=== PATIENT | female | born 1975 | race Caucasian/White ===

== ENCOUNTER 2022-05-01 09:00 | Outpatient (CLI) | payer MEDICARE, OTHER, SELFPAY ==
--- NOTE | 2022-05-01 09:15 | MR_ITS ---
[address] [address] Phone:?[phone] Fax:?[phone] Referring Physician Information: Job Saleh M.D. [address] [facility] [address] Phone:?[phone] Fax:?[phone] Patient:Rob Jackson D.O.B:?1975 Sex:?Female Phone:?[phone] [facility] MRN:?[id number] Exam Date:?05/01/2022 ? EXAM: MRI of the RIGHT WRIST, without contrast CLINICAL HISTORY: Ongoing right wrist pain for multiple months without reported traumatic injury or previous surgery. COMPARISONS: None available. TECHNICAL: MR sequences of the right wrist were obtained: coronals: T1, PD FS, T2 3-D sagittals: PD FS axials: PD, PD FS Sedation: None Contrast: None FINDINGS: Joints and osseous structures: No fracture or suspicious bone marrow signal abnormality is seen. There is a moderate distal radioulnar joint effusion. TFCC: No discrete tear of the triangular fibrocartilage disc is seen although it must be noted that evaluation is suboptimal because of nonarthrogram technique. The proximal and distal laminae of the ulnar attachment are intact. The volar and dorsal radioulnar ligaments are intact. Ligaments: Scapholunate: The scapholunate interval measures close to 3 mm. The scapholunate angle measures approximately 77 degrees. Measures approximately 20 degrees. No discrete tear of the scapholunate ligament is seen although evaluation is suboptimal because of nonarthrogram technique. Lunotriquetral: No evidence of tear on this nonarthrogram study. No offset of the lunotriquetral interval. Tendons: Flexors: Intact without tendinopathy or tenosynovitis. Extensors: ECU & 6th extensor compartment: Intact without wild tendinopathy tear or longitudinal splitting. Extensor retinaculum and fibrous subsheath appear intact without demonstrable subsheath injury or nonphysiologic ECU displacement. 1st - 5th extensor compartments: Intact and unremarkable. Neurovascular: Median: Unremarkable carpal tunnel without convincing neuritis or intrinsic/extrinsic masses. Ulnar: Unremarkable Guyon's canal without intrinsic/extrinsic masses. Ganglia: No ganglion is identified. IMPRESSION: 1. Upper limits of normal/borderline increased scapholunate interval and scapholunate angle. While previous sprain/stretching type injury of the scapholunate ligament is not excluded, there is no evidence of discrete scapholunate ligament tear on this nonarthrogram study. Findings are of uncertain clinical significance. 2. Moderate distal radioulnar joint effusion. 3. No evidence of the triangular fibrocartilage tear although evaluation is suboptimal because of nonarthrogram technique. No tendinous pathology, fracture, or subluxation/dislocation of the right wrist. RCB Electronically signed on 05/01/2022 12:03:00 PM by Neto Bartlett M.D.
== END 2022-05-01 09:01 | disposition home or self-care (01) ==
LOC: MRI 09:02
PROVIDERS: PCP Family Medicine; Visit Provider Orthopaedic Surgery Sports Medicine
DX: M25.531 Pain in right wrist (principal); M25.431 Effusion, right wrist
CPT/HCPCS: 73221

== ENCOUNTER 2022-07-22 10:00 | Outpatient (CLI) | payer MEDICARE, OTHER, SELFPAY ==
--- NOTE | 2022-07-22 10:15 | CRLHL7_ITS ---
For Patients: As a result of the Century Cures Act, medical imaging exams and procedure reports are released immediately into your electronic medical record. You may view this report before your referring provider. If you have questions, please contact your health care provider. BILATERAL SCREENING MAMMOGRAM WITH COMPUTER-AIDED DETECTION TECHNIQUE: CC and MLO views were obtained. These mammographic images have been obtained using full-field digital technique. These mammographic images were interpreted with the benefit of computer-aided detection. COMPARISON FILM: 06/04/21, 05/10/20, 04/12/19. FINDINGS: There are scattered areas of fibroglandular density IMPRESSION: There is no radiographic evidence for malignancy. ASSESSMENT: BI-RADS Category 1: Negative RECOMMENDATION: Routine screening mammogram in 1 year. A lay language report of this examination will be provided to the patient. Abdiel Solares M.D. Diagnostic Radiologist [email or web address] ASA/Dictated by: Abdiel Solares MD @ 07/22/2022 11:36:00 AM (Electronically Signed)
== END 2022-07-22 10:01 | disposition home or self-care (01) ==
LOC: MAMMO 10:01
PROVIDERS: PCP Family Medicine; Visit Provider Family Medicine
DX: Z12.31 Encounter for screening mammogram for malignant neoplasm of breast (principal)
CPT/HCPCS: 77063; 77067

== ENCOUNTER 2022-08-08 09:27 | Outpatient (CLI) | payer MEDICARE, OTHER, SELFPAY ==
[2022-08-08 13:28] LABS: Albumin* 4.3 g/dL (3.3-5.0); Chloride* 104 mmol/L (96-114); Potassium* 4.6 mmol/L (3.6-5.1); Sodium* 139 mmol/L (135-149)
[2022-08-08 13:30] LABS: Alkaline Phosphatase* 75 U/L (40-150); Aspartate Amino Transferase* 21 U/L (12-35); Bilirubin Total* 0.5 mg/dL (0.1-1.5); Blood Urea Nitrogen* 10 mg/dL (5-24); Carbon Dioxide* 28 mmol/L (20-32); Creatinine* 0.8 mg/dL (0.5-1.5); Estimated Glomerular Filt Rate 91 ml/min; Total Protein* 6.8 g/dL (6.0-8.3)
[2022-08-08 13:31] LABS: Alanine Aminotransferase* 13 U/L (4-35); Calcium* 9.1 mg/dL (8.4-10.6); Glucose* 85 mg/dL (60-115)
== END 2022-08-08 09:28 | disposition home or self-care (01) ==
LOC: LKVREF 09:27
PROVIDERS: PCP Family Medicine; Visit Provider Family Medicine
DX: Z01.818 Encounter for other preprocedural examination (principal); Z79.899 Other long term (current) drug therapy
CPT/HCPCS: 80053

== ENCOUNTER 2022-08-20 10:43 | Outpatient (CLI) | payer MEDICARE, OTHER, SELFPAY ==
--- NOTE | 2022-08-20 12:50 | W.ANESCHARGE ---
Anesthesia Charges Start Date/Time Anesthesia Start Date: 08/20/22 Anesthesia Start Time: 12:15 Stop Date/Time Anesthesia Stop Date: 08/20/22 Anesthesia Stop Time: 12:50 Summary Emergency: No
--- NOTE | 2022-08-20 12:54 | W.ANESCHARGE ---
Anesthesia Charges Start Date/Time Anesthesia Start Date: 08/20/22 Anesthesia Start Time: 12:15 Stop Date/Time Anesthesia Stop Date: 08/20/22 Anesthesia Stop Time: 12:50 Summary Emergency: No
== END 2022-08-20 10:44 | disposition home or self-care (01) ==
LOC: OP CLINIC 10:44
PROVIDERS: PCP Family Medicine; Visit Provider Surgery
DX: Z12.11 Encounter for screening for malignant neoplasm of colon (principal)
CPT/HCPCS: 00812; 45378

== ENCOUNTER 2022-11-14 13:10 | Outpatient (CLI) | payer MEDICARE, OTHER, SELFPAY | END 2022-11-14 13:11 | disposition home or self-care (01) | LOC: LKVREF 11-20 09:11 | PROVIDERS: PCP Family Medicine; Visit Provider Family Medicine | DX: R35.0 Frequency of micturition (principal); N39.0 Urinary tract infection, site not specified | CPT/HCPCS: 87086 ==

== ENCOUNTER 2023-01-14 08:12 | Outpatient (CLI) | payer MEDICARE, OTHER, SELFPAY | END 2023-01-14 08:13 | disposition home or self-care (01) | PROVIDERS: PCP Family Medicine; Visit Provider Family Medicine | DX: Z00.00 Encounter for general adult medical examination without abnormal findings (principal); N39.0 Urinary tract infection, site not specified; B35.1 Tinea unguium; Z13.6 Encounter for screening for cardiovascular disorders | CPT/HCPCS: 80053; 80061; 82306; 84443; 87086 ==

== ENCOUNTER 2023-07-25 07:48 | Outpatient (CLI) | payer MEDICARE, OTHER, SELFPAY | END 2023-07-25 07:49 | disposition home or self-care (01) | LOC: NFLDREF 07-26 03:08 | PROVIDERS: PCP Family Medicine; Referring Provider Family Medicine; Visit Provider Family Medicine | DX: R32 Unspecified urinary incontinence (principal); R00.0 Tachycardia, unspecified; F41.9 Anxiety disorder, unspecified; F20.9 Schizophrenia, unspecified | CPT/HCPCS: 87086 ==

== ENCOUNTER 2024-01-16 08:51 | Outpatient (CLI) | payer OTHER, SELFPAY ==
--- NOTE | 2024-01-16 09:15 | MM_ITS ---
Patient: PETRONA GARCIA Facility:?[facility] Patient ID:?[id number] Site Patient ID:?[id number]. Site :?1975 Study:?XRay-Breast Bilateral 3D W/CAD-01/16/2024 9:58:27 AM Ordering Physician:Yoselin Final Report: BILATERAL SCREENING MAMMOGRAM WITH COMPUTER-AIDED DETECTION AND TOMOSYNTHESIS TECHNIQUE: CC and MLO views were obtained. These mammographic images have been obtained using full-field digital technique. These mammographic images were interpreted with the benefit of computer-aided detection. Breast Tomosynthesis was used in this interpretation. COMPARISON FILM: 07/22/22, 06/04/21, 05/10/20. FINDINGS: There are scattered areas of fibroglandular density. IMPRESSION: There is no radiographic evidence for malignancy. ASSESSMENT: BI-RADS Category 1: Negative RECOMMENDATION: Routine screening mammogram in 1 year. A lay language report of this examination will be provided to the patient. Abdiel Solares M.D. Diagnostic Radiologist [email or web address] DSM/sp R& Transcribed: 5:22 p.m. SP/Dictated by: Abdiel Solares MD @ 01/16/2024 11:26:00 AM SP/Dictated by: Abdiel Solares MD @ 01/16/2024 11:26:00 AM Signed by:?Abdiel Solares MD @01/16/2024 5:39:57 PM (Electronic Signature)
== END 2024-01-16 08:52 | disposition home or self-care (01) ==
LOC: MAMMO 08:52
PROVIDERS: PCP Family Medicine; Visit Provider Family Medicine
DX: Z12.31 Encounter for screening mammogram for malignant neoplasm of breast (principal)
CPT/HCPCS: 77063; 77067

== ENCOUNTER 2024-04-26 10:03 | Outpatient (CLI) | payer OTHER, SELFPAY ==
--- OUTSIDE RECORDS SUMMARY | 2024-04-26 10:09 | XMS_ITS | Clinical Summary ---
Author Organization [facility] Address [address] [place] [address]. [place] [address] Care Team Providers Care Glove Tagger Name Role Phone Arie Calhoun MD Primary Care Provider Allergies No known active allergies Medications Medication Sig Dispensed Refills Start Date End Date Status traMADol (ULTRAM) 50 MG tablet Take 50 mg by mouth 07/05/2013 Activ e buPROPion (WELLBUTRIN SR) 200 MG 12 hr tablet Take 200 mg by mouth Active cyclobenzaprine (FLEXERIL) 10 MG tablet TAKE ONE TABLET BY MOUTH THREE TIMES A DAY NEEDED 1 08/28/2017 Active BusPIRone HCl 30 MG TABS TAKE ONE-HALF TABLET BY MOUTH THREE TIMES A DAY 2 08/21/2017 Active nabumetone (RELAFEN) 500 MG tablet Take 500 mg by mouth 2 times daily 1 08/25/2017 Active polyethylene glycol (MIRALAX/GLYCOLAX) powder DISSOLVE 17 GRAMS (ABOUT ONE HEAPING TABLESPOONFUL) IN WATER AND DRINK BY MOUTH ONCE DAILY NEEDED 0 07/18/2017 Active tolterodine (DETROL LA) 4 MG 24 hr capsule Take 4 mg by mouth daily 3 07/17/2017 Active traZODone (DESYREL) 50 MG tablet TAKE 1/2-1 TABLET BY MOUTH AT BEDTIME 2 08/22/2017 Active Active Problems No known active problems Social History Tobacco Use Types Packs/Day Years Used Date Smoking Tobacco: Never Smokeless Tobacco: Never Sex and Gender Information Value Date Recorded Sex Assigned at Not on file Gender Identity Not on file Sexual Orientation Not on file Last Filed Vital Signs Vital Sign Reading Time Taken Comments Blood Pressure 108/70 09/11/2017 11:20 AM ALUMINUM FABRICATION SUPERVISOR Pulse - - Temperature - - Respiratory Rate - - Oxygen Saturation - - Inhaled Oxygen Concentration - - Weight 68.9 kg (152 lb) 09/11/2017 11:20 AM ALUMINUM FABRICATION SUPERVISOR Height 157.5 cm (5' 2) 09/11/2017 11:20 AM ALUMINUM FABRICATION SUPERVISOR Body Mass Index 27.8 09/11/2017 11:20 AM ALUMINUM FABRICATION SUPERVISOR Plan of Treatment Not on file Care Teams Glove Tagger Relationship Specialty Start Date End Date Arie Calhoun MD PCP - General Family Practice 09/11/17
--- OUTSIDE RECORDS SUMMARY | 2024-04-26 10:10 | XMS_ITS | Referral Summary ---
Author Organization [facility] Address [address] [place] [address]. [place] [address] Care Team Providers Care Squeezer Operator Name Role Phone Arie Calhoun MD Primary Care Provider [phone] Allergies No known active allergies Medications Medication [...] Comments Blood Pressure 108/70 09/11/2017 11:20 AM ICING MAKER Pulse - - Temperature - - Respiratory Rate - - Oxygen Saturation - - Inhaled Oxygen Concentration - - Weight 68.9 kg (152 lb) 09/11/2017 11:20 AM ICING MAKER Height 157.5 cm (5' 2) 09/11/2017 11:20 AM ICING MAKER Body Mass Index 27.8 09/11/2017 11:20 AM ICING MAKER Plan of Treatment Not on file Care Teams Squeezer Operator Relationship Specialty Start Date End Date Arie Calhoun MD PCP - General Family Practice 09/11/17
--- OUTSIDE RECORDS SUMMARY | 2024-04-26 10:10 | XMS_ITS | Clinical Summary ---
Author Organization [facility] Address [place], [place] [address] Care Team Providers Care Marketing Communications Associate Name Role Phone Arie Calhoun MD Primary Care Provider Allergies No known active allergies Medications Medication Sig Dispensed Refills Start Date End Date Status BUSPAR 30 MG TAB 1 pill twice daily for anxiety Active DETROL LA 4 MG 24 HR CAP take 1 capsule (4 mg) by oral route once daily. for bladder control. Active naproxen (NAPROSYN) 500 mg tablet Take 500 mg by mouth 2 times daily with meals. Active pantoprazole (PROTONIX) 40 mg tabletIndication s:gastroesophage al reflux disease Take 40 mg by mouth 2 times daily. Indications: GASTROESOPHAGEAL REFLUX 04/02/2011 Active albuterol (PROVENTIL; VENTOLIN) 90 mcg/Actuation inhalerIndicatio ns:bronchospasm prevention Inhale 2 Puffs by mouth every 4 hours if needed. Indications: BRONCHOSPASM PREVENTION 04/02/2011 Active traMADol (ULTRAM) 50 mg tablet Take 1 tablet by mouth every 6 hours if needed for Pain. 15 tablet 0 07/05/2013 Active bisacodyl (DULCOLAX) 10 mg suppositoryIndic ations:constipat ion Insert 10 mg rectally once daily if needed. Indications: CONSTIPATION Active buPROPion (WELLBUTRIN SR) 200 mg Sustained-Releas e tabletIndication s:depression Take 200 mg by mouth 2 times daily. Indications: depression Active Calcium-Cholecal ciferol, D3, (CALCIUM 600 + D,3,) 600 mg calcium- 200 unit capIndications:p revention of vitamin D deficiency Take 1 capsule by mouth once daily. Indications: PREVENTION OF VITAMIN D DEFICIENCY Active HYDROcodone-acet aminophen, 5-325 mg, (NORCO) per tablet Take 1-2 tablets by mouth every 4 hours if needed for Pain. Max acetaminophen dose: 4000mg in 24 hrs. 20 tablet 0 02/09/2014 Active ibuprofen (ADVIL; MOTRIN) 600 mg tablet Take 1 tablet by mouth every 6 hours if needed for Pain. Maximum of 3200 mg in 24 hours. 30 tablet 0 02/09/2014 Active escitalopram oxalate (LEXAPRO) 20 mg tablet 02/10/2017 Active triamcinolone 0.5% (ARISTOCORT) 0.5 % creamIndications :Rash,Itching with irritation Apply topically to affected area(s) 3 times daily. 1 Tube 04/23/2018 Active Active Problems Problem Noted Date Diagnosed Date Adnexal mass 02/08/2014 Immunizations Name Administration Dates Next Due Influenza, IIV3 (Age >=3 years) 08/08/2010,07/28 Td (Age >=7 Years) 06/26/2009 Social History Tobacco Use Types Packs/Day Years Used Date Smoking Tobacco: Former Tobacco Cessation:Counseling Given: No Alcohol Use Standard Drinks/Week Comments Not Asked 0 (1 standard drink = 0.6 oz pur e alcohol) Sex and Gender Information Value Date Recorded Sex Assigned at Not on file Gender Identity Not on file Sexual Orientation Not on file Obstetrics History Last Filed Vital Signs Vital Sign Reading Time Taken Comments Blood Pressure 119/83 01/17/2023 10:57 AM CDT Pulse 105 01/17/2023 10:57 AM CDT Temperature 36.8 ??C (98.2 ??F) 01/17/2023 10:44 AM C DT Respiratory Rate 16 01/17/2023 10:44 AM CDT Oxygen Saturation 96% 01/17/2023 10:57 AM CDT Inhaled Oxygen Concentration - - Weight 77.6 kg (171 lb) 01/17/2023 10:44 AM CDT Height 160 cm (5' 3) 01/17/2023 10:44 AM CDT Body Mass Index 30.29 01/17/2023 10:44 AM CDT Plan of Treatment Health Maintenance Due Date Last Done Comments Tdap 1985 Depression screening for age 12+ 1986 HIV for age 15-65 1989 BMI (ht and wt on same day) for age 18+ 1992 Hepatitis C screening for age 18-79 1992 Pap test for age 21-65 1995 Tetanus booster 06/26/2019 06/26/2009 Colonoscopy through age 75 2019 Lipids for age 45-75 2019 Mammogram for age 45-75 2019 COVID-19 vaccine series (2022- season) 2023 09/16/2022, 09/03/2021, 02/02/2021, Additional history exists Influenza for age 9-49 07/04/2024 08/08/2010, 2008 Pneumococcal series for age 6-64 Aged Out No longer eligible based on patient's age to complete this topic Advance Directives * Full Code (Latest Code Status on File) Date Activated Date Inactivated Comments 02/07/2014 5:20 PM 02/09/2014 9:26 PM * Full Code Date Activated Date Inactivated Comments 02/07/2014 8:21 AM 02/07/2014 5:20 PM * Full Code Date Activated Date Inactivated Comments 04/05/2011 10:33 AM 04/05/2011 4:48 PM Care Teams Marketing Communications Associate Relationship Specialty Start Date End Date Arie Calhoun MD [address] [place] [address] PCP - General Family Practice 02/11/11
--- OUTSIDE RECORDS SUMMARY | 2024-04-26 10:10 | XMS_ITS | Referral Summary ---
Author Organization [facility] Address [address] [place] [address] Care Team Providers Care Printing Manager Name Role Phone None Reported, Pcp Primary Care Provider Unavail able Source Comments Patient records contain information from all sites at [facility]. For routine questions regarding patient records, call [phone] during business hours, M-F 8:00 AM - 5:00 PM Central Time. Record requests for emergency care only can be directed to [phone] at any time.[facility] Allergies No known active allergies Medications Medication Sig Dispensed Refills Start Date End Date Status escitalopram (for_LEXAPRO) 20 mg tablet Take 1 tablet by mouth daily. 06/27/2017 Active ARIPiprazole (ABILIFY) 20 mg tablet Take 20 mg by mouth daily. 01/11/2023 Active DULoxetine (CYMBALTA) [address] capsule Take 120 mg by mouth daily. 01/11/2023 Active fesoterodine (TOVIAZ) 4 mg 24 hr tablet 01/24/2023 Active pantoprazole (PROTONIX) 40 mg EC tablet Take 40 mg by mouth daily. 12/20/2022 Active polyethylene glycol (MIRALAX) 17 gram/dose oral powder DISSOLVE 17 GRAMS (ABOUT ONE HEAPING TABLESPOONFUL) IN WATER AND DRINK BY MOUTH ONCE DAILY NEEDED 07/18/2017 Active prazosin (MINIPRESS) 2 mg capsule 01/24/2023 Active Senna Plus 8.6-50 mg per tablet Take 2 tablets by mouth at bedtime. 12/07/2022 Active Active Problems Problem Noted Date Diagnosed Date Major Depressive Disorder Single Episode Unspeci fied 09/06/2009 Overview: Depression Major NOS Immunizations Name Administration Dates Next Due DTaP (Infanrix, Tripedia) 06/26/2009 H1N1 Inj 11/01/2009 Influenza (IM) Preservative Free 07/28/2009,09/03 Influenza TIV (IM) 08/08/2010,07/28/2009 Influenza, Unspecified 07/18/2016,09/12/2011,04/2010 SARS-COV-2 (COVID-19) - PFIZ ER BIVALENT TS(Discontinued)(12 YEARS OR OLDER) 09/16/2022 Td Preservative Free (TENIVA C, DECAVAC) 04/12/2019,10/11/1999 Tdap 06/26/2009 influenza vaccine quad (FLUZONE/FLUARIX) (6 months and older)(PF) 08/24/2021,07/26/2020,08/13/2019,2017,08/22/2017,09/12/2016,11/01/2009 Social History Tobacco Use Types Packs/Day Years Used Date Smoking Tobacco: Never Smokeless Tobacco: Never Tobacco Cessation:Counseling Given: Not Answered Nutrition Answer Date Recorded Nutrition: EVOO Fat Source Unknown 12/23 Nutrition: Servings of Fruits/Vegetables per Day Not on file 12/23/2020 Dental Answer Date Recorded Dental: Regular Dentist Unknown 12/23/19 Sex and Gender Information Value Date Recorded Sex Assigned at Not on file Gender Identity Not on file Sexual Orientation Not on file Last Filed Vital Signs Vital Sign Reading Time Taken Comments Blood Pressure 119/83 01/27/2023 10:05 AM CDT Pulse 118 01/27/2023 10:05 AM CDT Temperature 35.6 ??C (96 ??F) 01/27/2023 10:05 AM CDT Respiratory Rate 16 01/27/2023 10:05 AM CDT Oxygen Saturation 97% 01/27/2023 10:05 AM CDT Inhaled Oxygen Concentration - - Weight 75.9 kg (167 lb 5.3 oz) 01/27/2023 10:05 AM CDT Height 159 cm (5' 2.6) 01/27/2023 10:05 AM CDT Body Mass Index 30.02 01/27/2023 10:05 AM CDT Plan of Treatment Not on file Procedures Procedure Name Priority Date/Time Associated Diagnosis Comments BI BREAST SCREENING BILATERAL Routine 02/09/2016 2:22 PM CDT BASIC METABOLIC PANEL, S/P Routine 01/21/2014 7:18 PM CDT LIPID PANEL, S Routine 03/23/2012 11:24 AM CDT from Last 3 Months or Most Recently Relevant to Health Maintenance Results * BI Breast Screening Bilateral (02/09/2016 2:22 PM CDT) Anatomical Region Laterality Modality Breast Bilateral Mammography 02/09/2016 2:22 PM CDT Addenda Addendum by ProviderThao M.D. on 02/09/2016 2:22 PM CDT RAD^^^OW MA Mammo Screening w ??CADD 02/09/2016 14:22:25 Impressions 02/09/2016 3:38 PM CDT No mammographic findings for malignancy in either breast. Recommendations: ??I recommend a follow-up mammogram in 1 year, self breast exams at least once per month and clinical breast exam at least once per year. ??Of note, benign findings should not deter biopsy in the setting of a palpable abnormality. ??The false negative rate of mammography is approximately 10%. CODE: 1-NEGATIVE Appropriate letter sent. Full field digital mammography is used and Computer Aided Detection is performed on the digital mammogram images. Narrative 02/09/2016 3:38 PM CDT EXAM: [place] Mammo Screening w/ CADD INDICATION: routine COMPARISON: 01/03/2015 FINDINGS: Heterogeneously dense breast parenchyma bilaterally. Breast density diminishes mammographic sensitivity for detection of malignancy. Procedure Note George Hennessy M.D. / ProviderThao M.D. - 03/07/2017 EXAM: MA Mammo Screening w/ CADD INDICATION: routine COMPARISON: 01/03/2015 FINDINGS: Heterogeneously dense breast parenchyma bilaterally. Breast density diminishes mammographic sensitivity for detection of malignancy. IMPRESSION: No mammographic findings for malignancy in either breast. Recommendations: I recommend a follow-up mammogram in 1 year, self breast exams at least once per month and clinical breast exam at least once per year. Of note, benign findings should not deter biopsy in the setting of a palpable abnormality. The false negative rate of mammography is approximately 10%. CODE: 1-NEGATIVE Appropriate letter sent. Full field digital mammography is used and Computer Aided Detection is performed on the digital mammogram images. Ngoc Pinto [facility] BI PROCEDURES * BMP (Basic Metabolic Panel) (01/21/2014 7:18 PM CDT) BUN (Blood Urea Nitrogen), S 11 6 - 21 MGDL POWERCHART Chloride, S 103 98 - 107 MMOLL POWERCHART CO2 Total 26 26 - 102 MMOLL POWERCHART Creatinine 0.7 0.6 - 1.1 MGDL POWERCHART Glucose 100 70 - 139 MGDL POWERCHART Calcium, Total, S 9.3 8.9 - 10.1 MGDL POWERCHART Sodium, S 136 135 - 145 MMOLL POWERCHART Potassium, S 3.9 3.6 - 5.2 MMOLL POWERCHART HXeGFR (MDRD) >60 >=60 [id number] POWERCHART eGFR Black/ >60 >=60 [id number] POWERCHART Blood 01/21/2014 7:18 PM CDT True Ty P.A.-C. LAB BLOOD A DD-ON POWERCHART * (ABNORMAL) Lipid Panel (03/23/2012 11:24 AM CDT) Calculated LDL 100 0 - 100 MGDL POWERCHART Total Cholesterol/HDL Ratio 2.78 2.20 - 4.40 POWERCHART Cholesterol, Total 181 0 - 200 MGDL POWERCHART Comment:Reference value 0-11 months: Not Established Triglycerides 82 41 - 150 MGDL POWERCHART HX HDL 65(H) 40 - 60 MGDL POWERCHART HXLDL/HDL 2 POWERCHART Blood 03/23/2012 11:2 4 AM CDT Arie Calhoun M.D. LAB BLOOD ADD-ON POWERCHART from Last 3 Months or Most Recently Relevant to Health Maintenance Care Teams Printing Manager Relationship Specialty Start Date End Date None Reported, Pcp PCP - General Family Medicine 01/26/23
--- OUTSIDE RECORDS SUMMARY | 2024-04-26 10:10 | XMS_ITS ---
Author Organization [facility] Address [address] [place] [address] Care Team Providers Care Supervisor Dog License Officer Name Role Phone Unavailable Unavailable Unavailable Surgery Details Not on file Complications Check Surgery Details section. Procedure Estimated Blood Loss Check Surgery Details section. Procedure Findings Check Surgery Details section. Procedure Specimens Taken Check Surgery Details section.
--- OUTSIDE RECORDS SUMMARY | 2024-04-26 10:10 | XMS_ITS | Clinical Summary ---
Author Organization [facility] Address [address] [place] [address] Care Team Providers Care Offensive Coordinator Name Role Phone None Reported, Pcp Primary Care Provider Unavail able Source Comments Patient records contain information from all sites at [facility]. For routine questions regarding patient records, call [phone] during business hours, M-F 8:00 AM - 5:00 PM Central Time. Record requests for emergency care only can be directed to [phone] at any time.[facility] Allergies No known active allergies Medications [...] quad (FLUZONE/FLUARIX) (6 months and older)(PF) 08/24/2021,07/26/2020,08/13/2019,2017,08/22/2017,09/12/2016,11/01/2009 Family History Medical History Relation Name Comments Breast cancer Grandmother Maternal Migraines Mother Relation Name Status Comments Grandmother Maternal Mother Social History Tobacco Use Types Packs/Day Years Used Date Smoking Tobacco: Never Smokeless Tobacco: Never Tobacco Cessation:Counseling Given: Not Answered Nutrition Answer Date Recorded Nutrition: EVOO Fat Source Unknown 12/23 Nutrition: Servings of Fruits/Vegetables per Day Not on file 12/23/2020 Dental Answer Date Recorded Dental: Regular Dentist Unknown 12/23/19 21 Sex and Gender Information Value Date Recorded [...] 01/27/2023 10:05 AM CDT Plan of Treatment Health Maintenance Due Date Last Done Comments CT Colonography 1975 Cologuard 1975 Colonoscopy 1975 Colorectal Cancer Screening 1975 Depression Monitoring (PHQ-9) 1975 FIT 1975 HIV Screening 1975 Hepatitis C Screening 1975 Visit: Medicare Annual Wellness 1975 Hepatitis B Vaccines (1 of 3 - 19+ 3-dose series) 1993 Fasting Glucose for Diabetes Screening 01/21/2017 01/21/2014, 03/23/2012 Mammogram 02/08/2017 02/09/2016, 01/03/2015 Lipid (Cholesterol) Screening 03/23/2017 03/23/2012 COVID-19 Vaccine ( season) 2023 09/16/2022, 09/03/2021, 02/02/2021, Additional history exists DTaP,Tdap,and Td Vaccines (4 - Td or Tdap) 04/12/2029 04/12/2019, 06/26/2009, 06/26/2009, Additional history exists Influenza Vaccine Completed 08/05/2023, , 08/24/2021, Additional history exists Pneumococcal vaccine (0-64 years) Aged Out No longer eligible based on patient's age to complete this topic Procedures Procedure Name Priority Date/Time Associated Diagnosis [...] 02/09/2016 2:22 PM CDT Addenda Addendum by Provider, Haim Osuna on 02/09/2016 2:22 PM CDT RAD^^^OW MA [...] malignancy. Procedure Note George Hennessy M.D. / Thao Aguirre M.D. - 03/07/2017 EXAM: [place] Mammo Screening w/ CADD INDICATION: routine COMPARISON: [...] on the digital mammogram images. Ngoc Pinto [facility] BI PROCEDURES * BMP (Basic Metabolic Panel) [...] 5.2 MMOLL POWERCHART HXeGFR (MDRD) >60 >=60 [id number] POWERCHART eGFR Black/ >60 >=60 [id number] POWERCHART Blood 01/21/2014 7:18 PM CDT True [...] Recently Relevant to Health Maintenance Care Teams Offensive Coordinator Relationship Specialty Start Date End Date None Reported, Pcp PCP - General Family Medicine 01/26/23
== END 2024-04-26 10:04 | disposition home or self-care (01) ==
PROVIDERS: PCP Family Medicine; Visit Provider Family Medicine
DX: K21.9 Gastro-esophageal reflux disease without esophagitis (principal); R32 Unspecified urinary incontinence; Z79.899 Other long term (current) drug therapy; Z13.220 Encounter for screening for lipoid disorders; Z13.228 Encounter for screening for other metabolic disorders
CPT/HCPCS: 80053; 82306; 82465; 82607; 82652; 83718; 87086

== ENCOUNTER 2024-08-03 07:44 | Outpatient (CLI) | payer OTHER, SELFPAY ==
--- OUTSIDE RECORDS SUMMARY | 2024-08-03 07:46 | XMS_ITS | Data Portability ---
Author Organization [place] - [facility], [employer] Address [address] [place] [address] Assessment No assessment recorded. Plan of Treatment Reminders Order Date Submit Date Provider Last Modified By Organization Details Last Modified Time Details Appointments None record ed. Lab None record ed. Referral None record ed. Procedures None record ed. Surgeries None record ed. Imaging None record ed. Medication Orders None record ed. Patient TargetsNo targets recorded. Patient InstructionsNo instructions recorded. Reason for Referral None Reported. Problems Name Problem SNOMED Code Status Onset Date Resolution Date Notes Provider Name and Address Organization Details Recorded Time Foot pain 04294785 Active 2021 Foot pain; Original Code: 054853470 Original Codesystem : SNOMED CT Classif ication: Medical Co nfirmation Status: Confirmed Not Available [facility] 3 09:15:20 Callosity 943943101 Active 2021 Callosity; Original Code: 782181320 Original Codesystem : SNOMED CT Classif ication: Medical Co nfirmation Status: Confirmed Not Available [facility] 3 09:15:20 Onychomyc osis of toenails 022338091 Active 2021 Onychomyco sis of toenails; Original Code: 6369923950 Original Codesystem : SNOMED CT Classif ication: Medical Co nfirmation Status: Confirmed Not Available [facility] 3 09:15:20 Hammer toe 801293782 Active 2021 Hammer toe; Original Code: 229883488 Original Codesystem : SNOMED CT Classif ication: Medical Co nfirmation Status: Confirmed Not Available [facility] 3 09:15:20 Problem Notes None recorded. Procedures Surgical History Date Name Laterality Status Provider Name and Address Organization Details Recorded Time [address] Damico cancelled Joe Morris, DPM [address] [place], [address], [facility] - [facility] 09/23/2022 14:08:54 Imaging Results None recorded. Procedure Notes None recorded. Medical Equipment None Reported. Medications Name Sig Start Date Stop Date Status Note LastModified by Organization Details LastModified Time azithromycin 250 mg tablet TAKE TWO TABLETS BY MOUTH ONE DOSE ON THE FIRST DAY, THEN TAKE ONE DAILY THEREAFTER. active Not Available Not Available Not Available prazosin 1 mg capsule TAKE ONE CAPSULE BY MOUTH EVERY EVENING AT BEDTIME ALONG WITH 2 MG CAPSULE FOR NIGHTMARES active Not Available Not Available N ot Available prednisone 20 mg tablet TAKE ONE TABLET BY MOUTH TWICE A DAY active Not Available Not Available No t Available propranolol ER 60 mg capsule,24 hr,extended release TAKE ONE CAPSULE (60 MG) BY MOUTH EVERY DAY AT BEDTIME active Not Available Not Available No t Available tramadol 50 mg tablet TAKE ONE TABLET BY MOUTH THREE TIMES A DAY NEEDED FOR PAIN active Not Available Not Available No t Available acetaminophe n 500 mg tablet TAKE TWO TABLETS BY MOUTH EVERY 6 HOURS NEEDED FOR PAIN (UP TO 3 ANDRES PER DAY) active Not Available Not Available No t Available terbinafine HCl 250 mg tablet TAKE 1 TABLET BY MOUTH EVERY DAY active Not Available Not Available No t Available benzonatate 100 mg capsule TAKE ONE CAPSULE BY MOUTH THREE TIMES A DAY NEEDED FOR COUGH active Not Available Not Available No t Available pantoprazole 40 mg tablet,delay ed release TAKE ONE TABLET BY MOUTH EVERY DAY active Not Available Not Available No t Available clotrimazole -betamethaso ne 1 %-0.05 % topical cream APPLY 1 APPLICATION TWICE A DAY FOR 2 WEEKS active Not Available Not Available Not Available codeine 10 mg-guaifenes in 100 mg/5 mL oral liquid 5 ML BY MOUTH EVERY 4-6 HOURS NEEDED FOR COUGH active Not Available Not Available No t Available prazosin 2 mg capsule TAKE ONE CAPSULE BY MOUTH EVERY DAY AT BEDTIME active Not Available Not Available No t Available amoxicillin 875 mg-potassium clavulanate 125 mg tablet TAKE ONE TABLET BY MOUTH TWICE A DAY active Not Available Not Available No t Available simethicone 80 mg chewable tablet CHEW AND SWALLOW ONE TABLET BY MOUTH TWO TO FOUR TIMES A DAY NEEDED FOR ABDOMINAL DISTENSION active Not Available Not Available N ot Available aripiprazole 20 mg tablet TAKE ONE TABLET BY MOUTH EVERY DAY active Not Available Not Available No t Available duloxetine 60 mg capsule,pham yed release TAKE TWO CAPSULES BY MOUTH EVERY DAY active Not Available Not Available No t Available diclofenac 1 % topical gel APPLY 2G TOPICALLY FOUR TIMES A DAY NEEDED FOR PAIN active Not Available Not Available No t Available fesoterodine ER 4 mg tablet,exten ded release 24 hr TAKE 1 TABLET BY MOUTH EVERY DAY active Not Available Not Available No t Available Vitals None Recorded Social History None recorded. Functional Status None recorded. Mental Status None recorded. Family History Nothing Reported. Medical History No medical history recorded. Gynecological HistoryNo gynecological history recorded. 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 0061360923 209193 M20.5X2 Acquired h allux limitus of right great toe 5525520298 428115 M20.5X1 Health Concerns Section Related Observation LastModified by Organization Detai ls LastModified Time None Recorded Concern Status LastModified by Organization Details LastModified Time None Recorded Advance Directives Directive None Recorded Payers Encounter Date Sequence Insurance Name Policy Number Policy Elias Covered Member ID Elias Member ID Guarantor Name 04/12/2024 1 [employer] (MEDICARE REPLACEMENT/ ADVANTAGE - PPO) Nasima Jackson [id number] Nasima Jackson Notes Date Note Type Note Provider Name and Address Organization Details Recorded Time 04/12/2024 text/html HPI Notes: The patient was seen today with a chief complaint of painful thickened and elongated toenails for which the patient has been unable to care on their own. Notes the thickness and ingrown corners that cause pain with pressure and shoegear use. At this time, also notes mild callusing under the big toe joints CHRISTINE NIETO, JANIS [address] [place], [address], [facility] - [facility] 04/12/2024 22:17:38 OBGyn Episode No OBEpisode recorded.
--- OUTSIDE RECORDS SUMMARY | 2024-08-03 07:46 | XMS_ITS | Clinical Summary ---
Author Organization [facility] Address [address] [place] [address]. 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
--- OUTSIDE RECORDS SUMMARY | 2024-08-03 07:46 | XMS_ITS | Clinical Summary ---
Author Organization [facility] Address [place], [place] [address] Care Team Providers Care Accident Examiner Name Role Phone Arie Calhoun MD Primary Care Provider [phone] Allergies No known active allergies Medications Medication [...] for age 45-75 2019 COVID-19 vaccine series ( season) 2024 09/16/2022, 09/03/2021, 02/02/2021, Additional history exists Influenza [...] 10:33 AM 04/05/2011 4:48 PM Care Teams Accident Examiner Relationship Specialty Start Date End Date Arie Calhoun MD PCP - General Family Practice 02/11/11
--- OUTSIDE RECORDS SUMMARY | 2024-08-03 07:46 | XMS_ITS | Referral Summary ---
Author Organization [facility] Address [address] [place] [address]. 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
--- OUTSIDE RECORDS SUMMARY | 2024-08-03 07:46 | XMS_ITS | Referral Summary ---
Author Organization [facility] Address [address] [place] [address] Care Team Providers Care Shook Machine Operator Name Role Phone None Reported, Pcp Primary Care Provider Unavail able Source Comments Patient records contain information from all sites at [facility]. For routine questions regarding patient records, call [phone] during business hours, M-F 8:00 AM - 5:00 PM Central Time. Record requests for emergency care only can be directed to [phone] at any time.[facility] Allergies No known active allergies Medications [...] Depressive Disorder Single Episode Unspeci fied 09/06/2009 Overview (03/25/2017): Depression Major NOS Immunizations Name Administration Dates Next Due DTaP (Infanrix, Tripedia) 06/26/2009 H1N1 Inj 11/01/2009 Influenza TIV (IM) 08/08/2010,07/28/2009 Influenza, Unspecified 07/18/2016,09/12/2011,04/2010 SARS-COV-2 (COVID-19) - PFIZ ER BIVALENT TS(Discontinued)(12 YEARS OR OLDER) 09/16/2022 Td Preservative Free (TENIVA C, DECAVAC) 04/12/2019,10/11/1999 Tdap 06/26/2009 influenza trivalent vaccine (6 months and older)(PF) 07/28/2009,09/13/2008 influenza vaccine quad (FLUZONE/FLUARIX) (6 months and [...] 5.2 MMOLL POWERCHART HXeGFR (MDRD) >60 >=60 [id number] POWERCHART eGFR Black/ >60 >=60 [id number] POWERCHART Blood 01/21/2014 7:18 PM CDT True Ty P.A.-C., P.A. LAB B LOOD ADD-ON POWERCHART * (ABNORMAL) Lipid Panel (03/23/2012 11:24 [...] Blood 03/23/2012 11:2 4 AM CDT Arie A Felland M.D. LAB BLOOD ADD-ON POWERCHART from Last 3 Months or Most Recently Relevant to Health Maintenance Care Teams Shook Machine Operator Relationship Specialty Start Date End Date None Reported, Pcp PCP - General Family Medicine 01/26/23
--- OUTSIDE RECORDS SUMMARY | 2024-08-03 07:46 | XMS_ITS | Clinical Summary ---
Author Organization [facility] Address [address] [place] [address] Care Team Providers Care Bed Laborer Name Role Phone None Reported, Pcp Primary Care Provider Unavail able Source Comments Patient records contain information from all sites at [facility]. For routine questions regarding patient records, call [phone] during business hours, M-F 8:00 AM - 5:00 PM Central Time. Record requests for emergency care only can be directed to [phone] at any time.[facility] Allergies No known active allergies Medications Medication [...] Screening 03/23/2017 03/23/2012 COVID-19 Vaccine ( season) 2024 09/16/2022, 09/03/2021, 02/02/2021, Additional history exists Influenza Vaccine (#1) 2024 3, 09/10/2022, 08/24/2021, Additional history exists DTaP,Tdap,and Td Vaccines (4 - Td or Tdap) 04/12/2029 04/12/2019, 06/26/2009, 06/26/2009, Additional history exists Pneumococcal vaccine (0-64 years) [...] images. Narrative 02/09/2016 3:38 PM CDT EXAM: [place] Mammo Screening w/ CADD INDICATION: routine COMPARISON: [...] performed on the digital mammogram images. [facility] DODD BI PROCEDURES * BMP (Basic Metabolic Panel) [...] 5.2 MMOLL POWERCHART HXeGFR (MDRD) >60 >=60 [id number] POWERCHART eGFR Black/ >60 >=60 [id number] POWERCHART Blood 01/21/2014 7:18 PM CDT True Ty P.A.-C., P.AWicho LAB B LOOD ADD-ON POWERCHART * (ABNORMAL) [...] POWERCHART Blood 03/23/2012 11:2 4 AM CDT Arei Calhoun M.D. LAB BLOOD ADD-ON POWERCHART from Last 3 Months or Most Recently Relevant to Health Maintenance Care Teams Bed Laborer Relationship Specialty Start Date End Date None Reported, Pcp PCP - General Family Medicine 01/26/23
--- OUTSIDE RECORDS SUMMARY | 2024-08-03 07:46 | XMS_ITS ---
Author Organization [facility] Address [address] [place] [address] Care Team Providers Care Engineering Test Mechanic Name Role Phone Unavailable Unavailable Unavailable Surgery Details Not on file Complications Check Surgery Details section. Procedure Estimated Blood Loss Check Surgery Details section. Procedure Findings Check Surgery Details section. Procedure Specimens Taken Check Surgery Details section.
--- NOTE | 2024-08-03 08:47 | W.ANESCHARGE ---
Anesthesia Charges Start Date/Time Anesthesia Start Date: 08/03/24 Anesthesia Start Time: 08:35 Stop Date/Time Anesthesia Stop Date: 08/03/24 Anesthesia Stop Time: 08:51
--- NOTE | 2024-08-03 08:58 | W.ANESCHARGE ---
Anesthesia Charges Start Date/Time Anesthesia Start Date: 08/03/24 Anesthesia Start Time: 08:35 Stop Date/Time Anesthesia Stop Date: 08/03/24 Anesthesia Stop Time: 08:51
== END 2024-08-03 07:45 | disposition home or self-care (01) ==
PROVIDERS: PCP Family Medicine; Visit Provider Surgery
DX: K21.9 Gastro-esophageal reflux disease without esophagitis (principal)
CPT/HCPCS: 00731; 43239; 88305; J2704; J3490

== ENCOUNTER 2024-12-06 10:00 | Outpatient (CLI) | payer OTHER, BC, SELFPAY | END 2024-12-06 10:01 | disposition home or self-care (01) | LOC: LKVREF 10:02 | PROVIDERS: PCP Family Medicine; Visit Provider Family Medicine | DX: R53.83 Other fatigue (principal); B35.1 Tinea unguium; Z79.899 Other long term (current) drug therapy; E66.9 Obesity, unspecified; F41.8 Other specified anxiety disorders | CPT/HCPCS: 80076; 84443 ==

== ENCOUNTER 2025-01-26 09:45 | Outpatient (RCR) | payer BC, SELFPAY ==
--- NOTE | 2025-01-14 14:50 | PT.OPEX ---
PT [place] Outpatient Eval PT [facility] Outpatient Eval Start: 01/13/25 16:37 Freq: Status: Active Protocol: Document 01/14/25 08:36 NLR (Rec: 01/14/25 12:54 NLR [id number]) E-signed By Darlin Higgins DPT Physical Therapy Outpatient Evaluation Insurance Information Recert Due Date 04/14/25 Insurance Name Medicare B,Blue Cross/Blue Shield,Other; See Comments Insurance Information/Comments [employer] Medical Diagnosis M75.41 Right shoulder impingement syndrome Treating Diagnosis M25.511 Pain right shoulder M25.611 Stiffness right shoulder Imaging Report Information None Referring MD Brodie Kilgore MD Subjective Preferred Name JODI Subjective Jodi arrives for PT evaluation today stating she woke up with R shoulder pain about two months ago. She denies any known injury and states she has never had pain like this before. She was seen for PT for a R rotator cuff injury in 2022 at a PT practice in [place] stating that therapy was from a fall. Jodi reports she did not fall. She compares the pain this time to the visits in 2022 as the same pain but in a different place. She has also been seen by OT in [place] following a right wrist Triangular Fibrocartilage Complex (TFCC) debridement surgery on 09/06/22. Pain Comments Pain ranges 2-7/10, depending on movement. Pain is sharp on the back of her shoulder ( tender at right levator insertion on scapula, rhomboid and infraspinatus). Pain is worse when lifting arm overhead. She takes a pill ( she's not sure the name of it) for muscles spasms at bedtime . 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 Jodi works at [employer] and [employer]. 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 It is also difficult to lift heavy objects at work like cat litter. Sometimes pain wakes her up at night. Precautions Therapy Limitations/Systems Review Communication Ability Objective Other/Pertinent Objective HAND DOM: RIGHT ROM: R shoulder flexion 95, abduction 95, IR 75, ER 30; L shoulder flexion 160, abduction 160, IR 80, ER 45 STRENGTH: R UE grossly 3/5, L UE grossly 4-/5 POSTURE: FHON, forward rounded shoulders, L shoulder high, R shoulder retracted, thoracic kyphosis, lumbar hyperlordosis . PALPATION: Tender to palpation R AC joint, R levator at scapula, R infraspinatus and R rhomboid. SPECIAL TESTS: R + empty can, + Ahmadi Reggie, B + painful arc R>L FLEXIBILITY: Hypoflexibility noted at long head of biceps R , pec minor R. FOOTWEAR: Patient arrives wearing Crocs that partially does provide adequate medial arch support. Assessment Assessment/Impression Jodi is a 49-year-old female who presents for skilled PT evaluation presenting with right shoulder pain and immobility which is consistent with R shoulder impingement and likely RC tendinopathy in the setting of previous shoulder injury (22), impaired posture, weakness and difficulty moving arm. Patient is an appropriate candidate for skilled physical therapy to target deficits described above. Skilled PT intervention is necessary to achieve goals as stated. D/C plan and criteria is for patient to achieve the goals as outlined or until max rehab potential is met. Patient was agreeable with plan of care and goals established. Primary Functional Limitations Difficulty to carry heavy things at work (cat litter) and to reach to restock higher shelves above shoulder height . Plan of Care Rehabilitation Potential Good Rehabilitation Potential Comments Patient is otherwise healthy and motivated to improve in order to return to prior level of function. Progress may be somewhat limited by presence of previous injury to same shoulder for which she had PT elsewhere. She exhibits flat affect and plays a game on her phone during evaluation, but is able to answer questions and follows directions appropriately. Physical Therapy Goals 1. Patient will be independent with home exercise program as instructed, modified and progressed by physical therapist in order to be independently and actively participating in their rehabilitation and return to prior level of function. Goal to be achieved by 04/13/2025. 2. Patient will lift 5 # weight through at least 150 degrees of active shoulder flexion and abduction above head height safely and independently without compensation or significant increase in pain over 2/10 allowing for reaching and grasping objects from elevated surfaces to safely and independently allow functional activities such as lifting/ reaching to restock shelves at work. Goal to be achieved by 04/13/2025. 3. Patient will lift 20 # weight while utilizing appropriate body mechanics safely and independently without compensation or significant increase in pain over 2/10 allowing for lifting and carrying objects to safely and independently allow functional activities such as carry heavier items at work ( ex: cat litter). Goal to be achieved by 04/13/2025. Coordination/Communication With Referral Source Treatment Plan/Direct Interventions Joint Mobilization,Manual Therapy,Neuromuscular Re-ed, Self-Care/Home Management, Therapeutic Activities, Therapeutic Exercises, Ultrasound Frequency/Duration 1X/week for 6-8 weeks Patient Will Be Discharged From Therapy Completion of LTG(s),Skills Plateau,Independent w/HEP, Independently Progressing Discharge Plan Comments DC with HEP Evaluation Billing Untimed Code Treatment Minutes 15 PT Eval No Charge No Complexity Low Certification Information Initial Certification Date 01/14/25 Ending Certification Date 04/14/25 Provider Signature Required Yes Provider Signature Shows Agreement With POC & Medical Necessity Physician NPI Number Write NPI# Here Physician Comment/Change : Physician Signature & Date Requested Please Sign/Date Here
== END 2025-02-03 09:59 | disposition home or self-care (01) ==
PROVIDERS: PCP Family Medicine; Visit Provider Family Medicine
DX: M75.41 Impingement syndrome of right shoulder (principal); M25.511 Pain in right shoulder; M25.611 Stiffness of right shoulder, not elsewhere classified; Z51.89 Encounter for other specified aftercare
CPT/HCPCS: 97110; 97161

== ENCOUNTER 2025-01-28 13:27 | Outpatient (CLI) | payer OTHER, BC, SELFPAY ==
--- NOTE | 2025-01-28 13:45 | CRLHL7_ITS ---
For Patients: As a result of the Century Cures Act, medical imaging exams and procedure reports are released immediately into your electronic medical record. You may view this report before your referring provider. If you have questions, please contact your health care provider. Indication: RADICULOPATHY LUMBAR REGION Technique: Noncontrast sagittal and axial T1, T2, and sagittal STIR sequences are provided. Comparison: Lumbar radiographs 01/17/2025 Findings: Exaggeration of lumbar lordosis. No fractures. Small Schmorl`s nodes in the T11-12 through L3-4 endplates. Modic type 2 degenerative changes in the T12 inferior corner, L1-2 endplates at L2-3 endplates and superior L4 endplate. The conus medullaris is normal in signal located at L1-2. No compression fractures. No aggressive osseous lesions. T12-L1: Disc desiccation. Mild interspace narrowing. Mild disc bulge. No significant spinal canal stenosis or neural foramen narrowing. L1-2: Disc desiccation. No spinal canal stenosis or neural foramen narrowing. L2-3: Disc desiccation. No significant spinal canal stenosis or neural foramen narrowing. L3-4: Disc desiccation. No spinal canal stenosis or neural foraminal narrowing. L4-5: Disc desiccation and facet arthrosis. No significant spinal canal stenosis or neural foraminal narrowing. L5-S1: Disc desiccation. Mild annular bulge and mild facet arthrosis. Left ligamentum flavum buckling. No significant spinal canal stenosis or neural foraminal narrowing. Impression: 1. Normal alignment. No acute osseous or ligamentous abnormality. Multilevel small chronic Schmorl`s nodes. 2. Multilevel low-grade lumbar spondylosis. No significant spinal canal stenosis or neural foramen narrowing. Dictated by Abdiel Corado MD @ 01/28/2025 4:01:03 PM (Electronically Signed)
== END 2025-01-28 13:28 | disposition home or self-care (01) ==
LOC: MRI 13:28
PROVIDERS: PCP Family Medicine; Visit Provider Family Medicine
DX: M54.10 Radiculopathy, site unspecified (principal); M51.45 Schmorl's nodes, thoracolumbar region; M47.896 Other spondylosis, lumbar region
CPT/HCPCS: 72148

== ENCOUNTER 2025-04-26 09:28 | Outpatient (CLI) | payer OTHER, SELFPAY | END 2025-04-26 09:29 | disposition home or self-care (01) | LOC: LKVREF 09:31 | PROVIDERS: PCP Family Medicine; Visit Provider Family Medicine | DX: E66.9 Obesity, unspecified (principal); F20.9 Schizophrenia, unspecified; F41.8 Other specified anxiety disorders; Z79.899 Other long term (current) drug therapy | CPT/HCPCS: 80053; 80061 ==

== ENCOUNTER 2025-07-26 10:01 | Outpatient (CLI) | payer OTHER, SELFPAY | END 2025-07-26 10:02 | disposition home or self-care (01) | LOC: NFLDREF 08-01 01:43 | PROVIDERS: PCP Family Medicine; Referring Provider Family Medicine; Visit Provider Family Medicine | DX: R32 Unspecified urinary incontinence (principal) | CPT/HCPCS: 87086 ==

== ENCOUNTER 2025-08-19 09:50 | Outpatient (CLI) | payer OTHER, SELFPAY ==
--- NOTE | 2025-08-19 10:15 | CRLHL7_ITS ---
For Patients: As a result of the Century Cures Act, medical imaging exams and procedure reports are released immediately into your electronic medical record. You may view this report before your referring provider. If you have questions, please contact your health care provider. INDICATION: BILATERAL SCREENING MAMMOGRAM, ASYMPTOMATIC 50 Y/O FEMALE COMPARISON: 01/16/2024, 07/22/2022, 06/04/2021 TECHNIQUE: Digital mammogram in CC and MLO projections including computer-aided detection (CAD) and tomosynthesis. BREAST COMPOSITION: There are scattered areas of fibroglandular density. FINDINGS: No suspicious findings. ASSESSMENT: BI-RADS 1 Negative RECOMMENDATION: Annual screening mammogram. A lay language report of this examination will be provided to the patient. Dictated by: Abdiel Solares MD @ 08/22/2025 09:21:59 (Electronically Signed)
== END 2025-08-19 09:51 | disposition home or self-care (01) ==
LOC: MAMMO 09:50
PROVIDERS: PCP Family Medicine; Visit Provider Family Medicine
DX: Z12.31 Encounter for screening mammogram for malignant neoplasm of breast (principal)
CPT/HCPCS: 77063; 77067

== ENCOUNTER 2025-10-10 13:02 | Outpatient (CLI) | payer OTHER, SELFPAY | END 2025-10-10 13:03 | disposition home or self-care (01) | LOC: LKVREF 13:03 | PROVIDERS: PCP Family Medicine; Visit Provider Family Medicine | DX: R32 Unspecified urinary incontinence (principal); R53.83 Other fatigue; Z79.899 Other long term (current) drug therapy | CPT/HCPCS: 80053; 84443; 87086 ==